=== PATIENT | male | born 1960 | race Hispanic/Latino ===

== ENCOUNTER → 2024-09-10 | Day surgery (SDC) | payer OTHER ==
[~2024-09-10] MED LIST: ATORVASTATIN CA10 MG PO; CLOPIDOGREL75 MG PO; CYCLOPENTOLATE HCL 2% OPTH SOLN 2 ML BTL OP ONE; FENTANYL CITRATE/PF 100MCG/2 ML INJ ONE; GATIFLOXACIN(OPTH) 5 ML LIQD ONE; GLYCOPYRROLATE INJ 0.2 MG/ML VIAL ONE; LIDOCAINE HCL 2% LOCAL INJ 5 ML SDV VIAL INJ ONE; MIDAZOLAM HCL 2 MG/2 ML VIAL ONE; MIDODRINE HCL5 MG PO; NEURONTIN100 MG PO; PHENYLEPHRINE HCL 2 ML DROPS ONE; PROPOFOL IV EMULSION 10 MG/ML 20 ML VIAL ONE; RENVELA0.8 GM PO; TETRACAINE HCL 0.5% OPTH SOLN 4 ML BTL ONE
[2024-09-10 06:29] LABS: BASOPHILS # (AUTO) 0.1 (0.0-0.1); BASOPHILS % 1.1 % (0.0-1.0); EOSINOPHILS # (AUTO) 0.3 (0.0-0.4); EOSINOPHILS % 2.6 % (0.0-6.0); HEMATOCRIT 42.4 % (38.2-49.6); HEMOGLOBIN 12.7 g/dL (14.0-18.0); LYMPHOCYTES # (AUTO) 2.9 (1.0-3.2); LYMPHOCYTES % 30.3 % (18.0-39.1); MEAN CORPUSCULAR HEMOGLOBIN 29.7 pg (28-32); MEAN CORPUSCULAR VOLUME 99.3 fL (81-99); MONOCYTES # (AUTO) 1.4 (0.2-0.8); MONOCYTES % 14.2 % (4.4-11.3); NEUTROPHILS # (AUTO) 4.9 (2.1-6.9); NEUTROPHILS % 51.3 % (38.7-80.0); PLATELET COUNT 190 x10e3/uL (140-360); RED BLOOD COUNT 4.27 x10e6/uL (4.3-5.7); RED CELL DISTRIBUTION WIDTH 13.7 % (11.7-14.4); WHITE BLOOD COUNT 9.64 x10e3/uL (4.8-10.8)
[2024-09-10 06:42] LABS: INR 1.07; PROTHROMBIN TIME 14.5 seconds (11.9-14.5)
[2024-09-10 06:43] LABS: PARTIAL THROMBOPLASTIN TIME 35.4 seconds (23.8-35.5)
[2024-09-10 06:49] LABS: CREATININE, SERUM 5.42 mg/dL (0.72-1.25)
[2024-09-10] MEDS: SODIUM CHLORIDE 0.9% 500ML 500 ML ONE (06:50)
[2024-09-10] MEDS: LACTATED RINGER'S 0 ML ONE (06:50)
[2024-09-10 08:40] VITALS: BP 134/72; PULSE 74; RESP 18; TEMP 97; O2SAT 98
== END | disposition home or self-care (01) ==
LOC: OR 05:20
PROVIDERS: ATTEND Ophthalmology
DX: H25.12 Age-related nuclear cataract, left eye (principal); E11.9 Type 2 diabetes mellitus without complications; Z01.810 Encounter for preprocedural cardiovascular examination; Z79.02 Long term (current) use of antithrombotics/antiplatelets; Z79.899 Other long term (current) drug therapy
CPT/HCPCS: 36415; 66984; 80048; 85025; 85610; 85730; 93005; J2003; J2250; J2704; J3010; J7040; V2632